=== PATIENT | male | born 1940 | race Caucasian/White ===

== ENCOUNTER 2018-09-20 10:07 | Day surgery (SDC) | payer MEDICARE ==
[2018-09-18 09:17] VITALS: BMI 29.5
[2018-09-20] MEDS ORDERED: Ciprofloxacin 400mg/200ml D5W 400 MG/200 ML BAG IVPB ONE (12:10)
[2018-09-20] MEDS ORDERED: Lidocaine 2% Jelly (Uro-Jet) ONE (12:10)
[2018-09-20] MEDS ORDERED: Propofol 10 mg/ml Inj (20 ML) ONE ×2 (12:23→12:40)
[2018-09-20] MEDS ORDERED: ePHEDrine 50 mg/ml Inj ONE (12:31)
[2018-09-20] MEDS ORDERED: HYDROmorphone 0.5 mg/0.5 ml ISec IVP PRN (13:07)
--- NOTE | 2018-09-20 13:13 | PCM.SURG1 ---
Surgeon's Initial Post Op Note - Surgeon's Notes Surgeon: ryan Chief Psychologist: none Type of Anesthesia: IV Sedation Anesthesia Administered By: Pre-Operative Diagnosis: bph elevated psa. Operative Findings: bph.cystatitis Post-Operative Diagnosis: bph cystitis Operation Performed: cystoscopy.transrectal prostate ultrasound biopsis. Specimen/Specimens Removed: prostate tissue Estimated Blood Loss: EBL {In ML}: 1 Blood Products Given: N/A Drains Used: No Drains Post-Op Condition: Good Date of Surgery/Procedure: 09/20/18 Time of Surgery/Procedure: 13:15
[2018-09-20 15:02] VITALS: RESP 18
[2018-09-20 15:10] VITALS: BP 103/63; PULSE 58; TEMP 97.6; O2SAT 100
--- NOTE | 2018-09-27 00:46 | OP ---
PROCEDURE DATE: 09/20/2018 SURGICAL PROCEDURE PREOPERATIVE DIAGNOSES: Benign prostatic hypertrophy, elevated prostate-specific antigen. POSTOPERATIVE DIAGNOSES: Benign prostatic hypertrophy, cystitis. OPERATIONS: Cystoscopy, prostate ultrasound biopsy. SURGEON: Jhony Farmer MD GROSS FINDINGS: Good bladder capacity. No tumor or stones were observed during emptying or filling of the bladder. Inflammation of the bladder urothelium noted. Mild trabeculated bladder. Ureteral orifices normally placed and in configuration. Enlarged lateral lobes of the prostate gland. Slightly elongated prostatic urethra. Membranous and pendulous urethra normal. TECHNIQUE: This patient was placed in lithotomy position. The external genitalia were prepped and draped in the usual sterile fashion. A #22 panendoscope was introduced in the bladder under direct vision. Findings as above. After cystoscopy was terminated using a rectal ultrasound probe, which was placed in the patient's rectum at 12 MHz, prostate biopsy was performed, six in number on the right lateral lobe by a biopsy needle. In the same manner, the left lobe of the prostate gland was biopsied. Minimal bleeding was present during the procedure. After the procedure was terminated, the rectum was thoroughly irrigated with normal saline. The procedure was terminated. The patient returned to recovery room in satisfactory condition. Jhony Farmer MD
== END 2018-09-20 15:51 | disposition home or self-care (01) ==
LOC: C.SDS 10:07
PROVIDERS: ATTEND Urology
DX: N42.1 Congestion and hemorrhage of prostate (principal); R97.20 Elevated prostate specific antigen [PSA]; N30.90 Cystitis, unspecified without hematuria; N40.0 Benign prostatic hyperplasia without lower urinary tract symptoms
CPT/HCPCS: 55899; 88305; 88342; J0744; J1170